=== PATIENT | male | born 1985 | race Caucasian/White ===

== ENCOUNTER 2020-12-12 04:51 | Emergency (ER) | payer OTHER | END 2020-12-12 06:19 | disposition home or self-care (01) | LOC: ER1 04:51 | DX: S91.114A Laceration without foreign body of right lesser toe(s) without damage to nail, initial encounter (principal); W25.XXXA Contact with sharp glass, initial encounter; Z23 Encounter for immunization | CPT/HCPCS: 12001; 90471; 99282 ==